=== PATIENT | female | born 1990 | race Caucasian/White ===

== ENCOUNTER 2018-07-27 10:19 | Outpatient (CLI) | payer MEDICAID ==
[~2018-07-27] VITALS: Ht 152.4 cm; Wt 66.8 kg
[2018-07-27 10:25] VITALS: BP 100/58; PULSE 70; Ht 152.4 cm; Wt 66.8 kg
[2018-07-27] MEDS ORDERED: PNV11TAB PO (10:26)
--- NOTE | 2018-07-27 12:46 | TRIAGE ---
OB Triage Datetime Report Generated by CPN: 07/27/2018 12:45 Datetime: 07/27/2018 10:34 Stage of : OB Triage Assessment Type: Triage EGA: 35.6 Maternal Assessment Level of Consciousness: Fully Conscious DTR's/Clonus: DTRs 2+; No Clonus Headache: Denies Blurred Vision: No Respiratory Effort: Unlabored; Regular Rhythm; Equal Expansion Breath Sounds, Left: Clear and Equal Breath Sounds, Right: Clear and Equal Nausea/Vomiting: Denies RUQ Epigastric Pain: Denies Facial Edema: None Temperature Route: Axillary Fall Risk Assessment History of Falling: (0) No Secondary Diagnosis: (0) No Ambulatory Aid: (0) Bedrest/Nurse Assist IV Therapy: (0) No Gait: (0) Normal/Bedrest/Immobile Mental Status: (0) Oriented to Own Ability Fall Score: 0 Fall Risk Score Definition: No Risk: No action required Labor Evaluation Frequency: 6-7 Monitor Mode: External Duration (sec)2399: 50-70 Quality: Mild Pattern: Normal: <= 5 Contractions in 10 Minutes Resting Tone [place]: Relaxed Heart Rate FHR Baseline Rate: 145 Monitor Mode: External US Variability: Moderate 6-25 bpm Accelerations: None Decelerations: None Pain Assessment Pain Scale: 0 Pain Presence: None/Denies Pain Type: N/A Pain Goal: 3 Pain Relief Measures: Comfort Measures Datetime: 07/27/2018 10:33 Time of Arrival: 07/27/2018 10:10 Arrived By: Ambulatory Arrived From: Dr. Zuñiga Chief Complaint: REFERRED FROM CLINIC FOR POSS MACROSOMIA, DENIES LEAKING, BLEEDING OR UCS Movement: Present Contractions: Denies/Absent Rupture of Membranes: Denies Vaginal Bleeding: None Vaginal Discharge: Denies Recent Sexual Intercouse: Denies Abdominal Trauma: Not Applicable Patient Complaints: None Time Provider Notified: 07/27/2018 12:00 Provider Notified: DR. ORTIZ Initial Plan: MONITOR, BPP, EFW
--- NOTE | 2018-07-27 17:47 | PN ---
Triage Information Date/Time 07/27/18 Reason for visit: sent from clinic for increase PAULA and macrosomia Weeks of Gestation 35w6d /Para Diabetes: none Hypertention: none Objective Vital Signs Date Temp Pulse Resp B/P (MAP) Pulse Ox O2 O2 Flow FiO2 Time Delivery Rate 07/27/18 97.7 70 100/58 10:25 (72) Heart Rate: 140's Heart Rate Comments CAT I Contractions: None Results/Medications Imaging Results BPP 8/8 PAULA 15.8 EFW 3477gm 97% Disposition: Discharge Assessment/Plan A IUP 35w6d P discharge home F/U prn by her OB MOY ORTIZ MD Jul 27, 2018 17:47
== END 2018-07-27 12:25 | disposition home or self-care (01) ==
LOC: OBT 10:19 → L-D 10:20 → OBT 12:25
PROVIDERS: ATTEND Obstetrics & Gynecology
DX: O36.63X0 Maternal care for excessive fetal growth, third trimester, not applicable or unspecified (principal); O41.93X0 Disorder of amniotic fluid and membranes, unspecified, third trimester, not applicable or unspecified; Z3A.35 35 weeks gestation of pregnancy
CPT/HCPCS: 76815; 76818; Z7500; G0463